=== PATIENT | female | born 1990 | race Caucasian/White ===

== ENCOUNTER 2017-08-09 02:59 | Emergency (ER) | payer MEDICAID ==
[2017-08-09 03:08] VITALS: BP 126/81
[2017-08-09] MEDS ORDERED: LIDOCAINE 1% INJ-PF (10 MG/ML) 30 ML SDV INJ ONE (03:46)
[2017-08-09] MEDS ORDERED: DIPH/PERTUSS(ACELL)/TETANUS VAC/PF 0.5 ML SYR (>=10YO) IM ONE (03:46)
--- NOTE | 2017-08-09 03:46 | ER Document Report ---
ED Wound - General Chief Complaint: Laceration Stated Complaint: FINGER INJURY Time Seen by Provider: 08/09/17 03:38 Notes: Patient is a 27-year-old female comes emergency department for chief complaint of laceration to her left middle finger. She states she was cutting foam with a knife when the knife slipped and she actually stabbed herself in the finger. She denies any other injuries. She states she is unsure if she is up-to-date on her tetanus within 5 years. TRAVEL OUTSIDE OF THE [place] IN LAST 30 DAYS: No - Related Data Allergies/Adverse Reactions: amoxicillin [Amoxicillin] Allergy (Intermediate, Verified 01/29/11 15:53) Hives Past Medical History - General Information source: Patient - Social History Smoking Status: Never Smoker Frequency of alcohol use: None Drug Abuse: None Lives with: Family Family History: Reviewed & Not Pertinent - Medical History Medical History: Negative Surgical Hx: Negative - Immunizations Hx Diphtheria, Pertussis, Tetanus Vaccination: Yes - during this Review of Systems - Review of Systems Constitutional: No symptoms reported EENT: No symptoms reported Cardiovascular: No symptoms reported Respiratory: No symptoms reported Gastrointestinal: No symptoms reported Genitourinary: No symptoms reported Female Genitourinary: No symptoms reported Musculoskeletal: See HPI Skin: See HPI Hematologic/Lymphatic: No symptoms reported Neurological/Psychological: No symptoms reported Physical Exam - Vital signs Vitals: Temp Pulse Resp BP Pulse Ox 98.5 F 110 H 18 126/81 H 96 08/09/17 03:07 08/09/17 03:07 08/09/17 03:07 08/09/17 03:07 08/09/17 03:07 Interpretation: Normal - General General appearance: Appears well, Alert - HEENT Head: Normocephalic, Atraumatic Eyes: Normal Pupils: PERRL - Respiratory Respiratory status: No respiratory distress Chest status: Nontender Breath sounds: Normal Chest palpation: Normal - Cardiovascular Rhythm: Regular Heart sounds: Normal auscultation Murmur: No - Abdominal Inspection: Normal Distension: No distension Bowel sounds: Normal Tenderness: Nontender Organomegaly: No organomegaly - Back Back: Normal, Nontender - Extremities General upper extremity: Other - Left index finger over the side laterally with a flap laceration, about 2 cm in length, irregular, partial-thickness, some bleeding. Normal range of motion of the finger at all joints, normal sensation and capillary refill, normal hand exam otherwise. General lower extremity: Normal inspection, Nontender, Normal color, Normal ROM , Normal temperature, Normal weight bearing. No: Chuck's sign - Neurological Neuro grossly intact: Yes Cognition: Normal Orientation: AAOx4 [place] Coma Scale Eye Opening: Spontaneous [place] Coma Scale Verbal: Oriented [place] Coma Scale Motor: Obeys Commands Girish Coma Scale Total: 15 Speech: Normal Motor strength normal: LUE, RUE, LLE, RLE Sensory: Normal - Psychological Associated symptoms: Normal affect, Normal mood - Skin Skin Temperature: Warm Skin Moisture: Dry Skin Color: Normal Course - Re-evaluation Re-evalutation: Cleaning, numbing, irrigating thoroughly wound was explored. No evidence of nerve, tendon, or large vessel injury. Wound repaired easily with sutures. Discussed care, follow-up, return precautions. Patient states understanding and agreement. - Vital Signs Vital signs: Temp Pulse Resp BP Pulse Ox 98.5 F 110 H 18 126/81 H 96 08/09/17 03:07 08/09/17 03:07 08/09/17 03:07 08/09/17 03:07 08/09/17 03:07 Procedures - Laceration/Wound Repair Left middle finger Wound length (cm): 2 Wound's Depth, Shape: Irregular, Flap Laceration pre-procedure: Sterile PPE donned, Sterile drapes applied, Shur- Clens applied Anesthetic type: 1% Lidocaine Volume Anesthetic (mLs): 3 Wound explored: Clean, No foreign body removed Irrigated w/ Saline (mLs): 50 Wound Repaired With: Sutures Suture Size/Type: 5:0, Nylon Number of Sutures: 4 Layer Closure?: No Post-procedure NV exam normal: Yes Complications: No Discharge - Discharge Clinical Impression: Finger laceration Qualifiers: Encounter type: initial encounter Finger: index finger Damage to nail status: without damage Foreign body presence: without foreign body Laterality: left Qualified Code(s): S61.211A - Laceration without foreign body of left index finger without damage to nail, initial encounter Condition: Stable Disposition: HOME, SELF-CARE Additional Instructions: Sutures need to come out in about 7 days. Keep area clean, clean gently with soap and water, dab dry, avoid soaking, you can apply thin film of topical antibiotic to the area. Return if you develop any concerning symptoms including redness, swelling, discolored discharge, fever, or any other concerning symptoms.
== END 2017-08-09 04:50 | disposition home or self-care (01) ==
LOC: ER 02:59
PROC: 0HQGXZZ Repair Left Hand Skin, External Approach (ICD-10-PCS; principal; 2017-08-09)
DX: S61.211A Laceration without foreign body of left index finger without damage to nail, initial encounter (principal); W26.0XXA Contact with knife, initial encounter
CPT/HCPCS: 99282; 90471; 90715; 12001; J3490

== ENCOUNTER 2019-04-16 08:48 | Emergency (ER) | payer MEDICAID ==
[2019-04-16 08:53] VITALS: BP 119/70
[2019-04-16] MEDS ORDERED: KETOROLAC TROMETHAMINE 60 MG/2 ML SDV IM ONE (09:23)
[2019-04-16] MEDS ORDERED: LIDOCAINE 5% (700 MG) TRANSDERMAL ADH..PATCH TP ONE (09:23)
[2019-04-16] MEDS ORDERED: DEXAMETHASONE 4 MG TABLET PO ONE (09:23)
--- NOTE | 2019-04-16 09:23 | ER Document Report ---
HPI - HPI Time Seen by Provider: 04/16/19 09:13 Pain Level: 5 Notes: Patient is a 29-year-old female presenting to the emergency department chief complaint of low back pain and left hip pain that radiates down left leg. Patient reports symptoms have been going on for 2 days. Patient denies any pain or burning with urination. She denies any fevers, nausea, vomiting or diarrhea. She denies any urinary retention, bowel incontinence or saddle anesthesia. She states she had a similar episode of back pain a few years ago and she ended up seeing a chiropractor. - REPRODUCTIVE Reproductive: DENIES: : - MUSCULOSKELETAL Musculoskeletal: REPORTS: Extremity pain - hip Past Medical History - General Information source: Patient - Social History Smoking Status: Never Smoker Family History: Reviewed & Not Pertinent Patient has suicidal ideation: No Patient has homicidal ideation: No - Medical History Medical History: Negative Renal/ Medical History: Denies: Hx Peritoneal Dialysis Past Surgical History: Reports: Hx Breast Surgery - Immunizations Hx Diphtheria, Pertussis, Tetanus Vaccination: Yes - during this Vertical Provider Document - CONSTITUTIONAL Notes: PHYSICAL EXAMINATION: GENERAL: Well-appearing, well-nourished and in mild distress. HEAD: Atraumatic, normocephalic. EYES: Pupils equal round extraocular movements intact, conjunctiva are normal. ENT: Nares patent NECK: Normal range of motion LUNGS: No respiratory distress Musculoskeletal: No vertebral tenderness in the cervical, thoracic or lumbar spine. No step-off or deformity on palpation. She does have lumbar paraspinous tenderness in the left lumbar region. She does have sciatic pain going into her left buttock and around to her left thigh. NEUROLOGICAL: Normal speech, normal gait. PSYCH: Normal mood, normal affect. SKIN: Warm, Dry, normal turgor, no rashes or lesions noted. - INFECTION CONTROL TRAVEL OUTSIDE OF THE [place] IN LAST 30 DAYS: No Course - Re-evaluation Re-evalutation: Presentation of a well appearing patient complaining of acute on chronic back pain. No rapid progression of symptoms, systemic symptoms including fevers, chills, weight loss, history of recent bacterial infection, bilateral symptoms, numbness, weakness, difficulty walking, urinary retention or bowel incontinence, personal history of cancer, immunosuppression, diabetes, known AAA, or history of IV drug use. Exam is without point tenderness over vertebral bodies, pulsatile abdominal mass, and patient has symmetric and intact lower extremity strength, sensation, and reflexes without clonus. 2+ symmetric medial malleolar and dorsalis pedis pulses Based on history and physical, I have a very low suspicion of a concerning etiology of pain including epidural compression syndrome, spinal infection, transverse myelitis, malignancy, abdominal aortic aneurysm, renal colic, acute lower extremity claudication, neurogenic claudication, ankylosing spondylitis, or other intra-abdominal process. Due to absence of concerning risk factors in history and physical as well as absence of rapidly progressive, severe, or bilateral symptoms, will defer imaging at this point. - Vital Signs Vital signs: Temp Pulse Resp BP Pulse Ox 97.6 F 78 20 119/70 98 04/16/19 08:52 04/16/19 08:52 04/16/19 08:52 04/16/19 08:52 04/16/19 08:52 Discharge - Discharge Clinical Impression: Back pain Qualifiers: Back pain location: low back pain Chronicity: acute Back pain laterality: left Sciatica presence: with sciatica Sciatica laterality: sciatica of left side Qualified Code(s): M54.42 - Lumbago with sciatica, left side Condition: Stable Disposition: HOME, SELF-CARE Additional Instructions: You have been seen in the Emergency Department (ED) today for back pain. Your workup and exam have not shown any acute abnormalities and you are likely suffering from muscle strain or possible problems with your discs, but there is no treatment that will fix your symptoms at this time. Please take the medications that have been prescribed as directed. Apply heat to the area as often as you are able. Continue to keep active and avoid prolonged periods of bed rest. Please follow up with your doctor as soon as possible regarding today's ED visit and your back pain. Return to the ED for worsening back pain, fever, weakness or numbness of either leg, or if you develop either (1) an inability to urinate or have bowel movements, or (2) loss of your ability to control your bathroom functions (if you start having "accidents"), or if you develop other new symp toms that concern you.concern you. Prescriptions: Cyclobenzaprine HCl [Flexeril 10 mg Tablet] 10 mg PO TIDP PRN #15 tab PRN Reason: Hydrocodone Bit/Acetaminophen [Hydrocodon-Acetaminophen 5-325] 1 each PO Q4H #12 tablet Lidocaine [Lidoderm 5% (700 mg) Transdermal Patch] 1 patch TP DAILY #30 adh..patch
== END 2019-04-16 09:44 | disposition home or self-care (01) ==
LOC: ER 08:48
DX: M54.42 Lumbago with sciatica, left side (principal)
CPT/HCPCS: J3490 ×2; J1885; 96374; 99283

== ENCOUNTER 2019-06-05 08:36 | Emergency (ER) | payer MEDICAID ==
[2019-06-05] MEDS ORDERED: CIPROFLOXACIN HCL/DEXAMETH OTIC DROP 7.5 ML AS ONE (08:57)
--- NOTE | 2019-06-05 08:58 | ER Document Report ---
HPI - HPI Patient complains to provider of: Left ear pain Time Seen by Provider: 06/05/19 08:42 Pain Level: 5 Notes: 29-year-old female with no past medical history presents with left ear pain for the past 2 weeks. She states she was driving back from [place] yesterday and the pain got worse. States it is starting to radiate down to her jaw. Patient states she felt "hot" few days ago however did not take her temperature. Patient states she did have a dry cough for the past couple days as well. Denies nausea, vomiting, diarrhea, constipation, chest pain, dyspnea, abdominal pain. Pt states she had frequent ear infections as a child, including swimmers ear. Pt had perforated TM one time as a child. - EENT EENT: REPORTS: Ear Pain - REPRODUCTIVE Reproductive: DENIES: : Past Medical History - Social History Smoking Status: Unknown if Ever Smoked Chew tobacco use (# tins/day): No Frequency of alcohol use: Occasional Drug Abuse: None Family History: Reviewed & Not Pertinent Patient has suicidal ideation: No Patient has homicidal ideation: No Renal/ Medical History: Denies: Hx Peritoneal Dialysis Past Surgical History: Reports: Hx Breast Surgery - Immunizations Hx Diphtheria, Pertussis, Tetanus Vaccination: Yes - during this Vertical Provider Document - CONSTITUTIONAL Notes: GENERAL: Well-appearing, well-nourished and in no acute distress. HEAD: Atraumatic, normocephalic. EYES: Extraocular movements intact, sclera anicteric, conjunctiva are normal. ENT: Left EAC swollen with mild erythema, left TM pearly/reeder, right EAC normal, nares patent, no mastoid tenderness bilaterally, oropharynx clear without exudates. Moist mucous membranes. No gum swelling. No caries. Uvula midline. No muffled voice. NECK: Normal range of motion, supple without lymphadenopathy or JVD. LUNGS: Breath sounds clear to auscultation bilaterally and equal. No wheezes rales or rhonchi. HEART: Regular rate and rhythm without murmurs, rubs or gallops. ABDOMEN: Soft, nontender. No guarding, no rebound. No masses appreciated. EXTREMITIES: Normal range of motion, no pitting or edema. No clubbing or cyanosis. NEUROLOGICAL: Cranial nerves II through XII grossly intact. Normal speech, normal gait. PSYCH: Normal mood, normal affect. SKIN: Warm, Dry, normal turgor, no rashes or lesions noted. - INFECTION CONTROL TRAVEL OUTSIDE OF THE [place] IN LAST 30 DAYS: No Course - Re-evaluation Re-evalutation: 06/05/19 29 y/o well appearing, nontoxic female presents with left ear pain for 2 weeks, worse yesterday. Exam consistent with otitis externa without mastoid tenderness to suggest mastoiditis. Afebrile. Ciprodex given in ER with prescription for same. Referral given to establish PCP for follow up. Return precautions discussed/given. All questions/concerns addressed prior to discharge. - Vital Signs Vital signs: Temp Pulse Resp BP Pulse Ox 97.8 F 109 H 18 117/72 96 06/05/19 08:39 06/05/19 08:39 06/05/19 08:39 06/05/19 08:39 06/05/19 08:39 Discharge - Discharge Clinical Impression: Left otitis externa Qualifiers: Otitis externa type: swimmer's ear Chronicity: acute Qualified Code(s): H60.332 - Swimmer's ear, left ear Condition: Stable Disposition: HOME, SELF-CARE Instructions: Use of Ear Drops ([facility]), Otitis Externa ([facility]), Acetaminophen Additional Instructions: Maintain adequate fluid intake Take meds as directed tylenol/ibuprofen as needed Avoid Q-tips in the ears over the counter cold medication as needed for symptoms F/u: with PCP listed in 2-3 days for a recheck Consider consult with ENT Return to the ED with any fever, dizziness, tinnitus, headaches, worsening pain, chest pain, palpitations, syncope, neck pain/stiffness, shortness of breath, wheezing, drooling, trouble swallowing/breathing, abdominal pain, n/v/d, rash, or worsening/concerning symptoms otherwise. Prescriptions: Ciprofloxacin HCl/Dexameth [Ciprodex Otic Suspension 7.5 ml Bottle] 3 drop OT BID #1 bottle Referrals: SHIRA BURNETTE MD [ACTIVE STAFF] - Follow up as needed
[2019-06-05 09:17] VITALS: BP 107/73
== END 2019-06-05 09:17 | disposition home or self-care (01) ==
LOC: ER 08:36
DX: H60.332 Swimmer's ear, left ear (principal); H92.02 Otalgia, left ear; R68.84 Jaw pain
CPT/HCPCS: 99282; J3490

== ENCOUNTER 2019-07-27 04:09 | Emergency (ER) | payer MEDICAID ==
[2019-07-27] MEDS ORDERED: ONDANSETRON 4 MG TAB.RAPDIS PO ONE (04:46)
--- NOTE | 2019-07-27 04:52 | ER Document Report ---
ED Medical Screen (RME) - General Chief Complaint: OB Problem (<20wks) Stated Complaint: VAGINAL BLEEDING Time Seen by Provider: 07/27/19 04:45 Notes: 29-year-old female chief complaint of vaginal bleeding, she states she believes she is about 7 weeks by last menstrual period. She also reports frequent morning sickness and vomiting, currently nauseated, same as previous pregnancies. Reports lower abdominal cramping. TRAVEL OUTSIDE OF THE [place] IN LAST 30 DAYS: No - Related Data Allergies/Adverse Reactions: amoxicillin [Amoxicillin] Allergy (Intermediate, Verified 06/05/19 08:43) Hives Home Medications: vitamin. allergy med Past Medical History Renal/ Medical History: Denies: Hx Peritoneal Dialysis Past Surgical History: Reports: Hx Breast Surgery - Immunizations Hx Diphtheria, Pertussis, Tetanus Vaccination: Yes - during this Physical Exam - Vital signs Vitals: Temp Pulse Resp BP Pulse Ox 98.3 F 113 H 20 112/68 96 07/27/19 04:19 07/27/19 04:19 07/27/19 04:19 07/27/19 04:19 07/27/19 04:19 - General General appearance: Other - Patient nauseated, holding an emesis bag - Cardiovascular Rhythm: Regular, Tachycardia - Borderline Heart sounds: Normal auscultation, S1 appreciated, S2 appreciated Course - Re-evaluation Re-evalutation: I have greeted and performed a rapid initial assessment of this patient. A comprehensive ED assessment and evaluation of the patient, analysis of test results and completion of the medical decision making process will be conducted by additional ED providers. - Vital Signs Vital signs: Temp Pulse Resp BP Pulse Ox 98.3 F 113 H 20 112/68 96 07/27/19 04:19 07/27/19 04:19 07/27/19 04:19 07/27/19 04:19 07/27/19 04:19
[2019-07-27 05:48] LABS: ABSOLUTE LYMPHOCYTES (AUTO) 0.7 10^3/uL (0.5-4.7); ABSOLUTE MONOCYTES (AUTO) 0.4 10^3/uL (0.1-1.4); ABSOLUTE NEUT (AUTO) 7.1 10^3/uL (1.7-8.2); BASOPHILS % (AUTO) 0.2 % (0-2); EOSINOPHILS % (AUTO) 0.5 % (0-6); HEMATOCRIT 38.1 % (36.0-47.0); HEMOGLOBIN 12.9 g/dL (12.0-15.5); LYMPHOCYTES % (AUTO) 8.2 % (13-45); MEAN CORPUSCULAR HEMOGLOBIN 30.8 pg (27.0-33.4); MEAN CORPUSCULAR HGB CONC 33.9 g/dL (32.0-36.0); MEAN CORPUSCULAR VOLUME 91 fl (80-97); PLATELET COUNT 244 10^3/uL (150-450); RED BLOOD COUNT 4.18 10^6/uL (3.72-5.28); RED CELL DISTRIBUTION WIDTH 12.8 % (11.5-14.0); SEGMENTED NEUTROPHILS % (AUTO) 86.1 % (42-78); TOTAL CELLS COUNTED % (AUTO) 100 %; WHITE BLOOD COUNT 8.3 10^3/uL (4.0-10.5)
[2019-07-27 06:10] LABS: ALBUMIN 4.4 g/dL (3.5-5.0); ALKALINE PHOSPHATASE 55 U/L (38-126); ANION GAP 12 (5-19); ASPARTATE AMINO TRANSFERASE 27 U/L (14-36); BILIRUBIN,DIRECT 0.2 mg/dL (0.0-0.4); BILIRUBIN,TOTAL 0.5 mg/dL (0.2-1.3); BLOOD UREA NITROGEN 12 mg/dL (7-20); CALCIUM 9.3 mg/dL (8.4-10.2); CARBON DIOXIDE 23 mmol/L (22-30); CHLORIDE 103 mmol/L (98-107); GLUCOSE 103 mg/dL (75-110); POTASSIUM 4.2 mmol/L (3.6-5.0); TOTAL PROTEIN 7.5 g/dL (6.3-8.2)
[2019-07-27 07:25] LABS: APPEARANCE,URINE SLIGHTLY-CLOUDY; BILIRUBIN,URINE NEGATIVE (NEGATIVE); COLOR,URINE YELLOW; GLUCOSE, URINE NEGATIVE (NEGATIVE); KETONES,URINE NEGATIVE (NEGATIVE); LEUKOCYTE ESTERASE,URINE NEGATIVE (NEGATIVE); NITRITE,URINE NEGATIVE (NEGATIVE); PROTEIN,URINE NEGATIVE (NEGATIVE); URINE SPECIFIC GRAVITY 1.016; UROBILINOGEN,URINE NEGATIVE mg/dL (<2.0)
--- NOTE | 2019-07-27 07:38 | RADIOLOGY REPORT (SQ) ---
CLINICAL HISTORY: +HCG, bleeding, pain COMPARISON: None. TECHNIQUE: US TRANSVAGINAL on 07/27/2019 5:43 AM [employer] FINDINGS: The uterus measures 11.3 cm. Intrauterine gestational sac contains a pole measuring 1.1 cm) weeks one day. heart rate is 180 bpm. There is an adjacent almost 1 cm subchorionic hemorrhage. Both ovaries are unremarkable with patent flow. IMPRESSION: Single live intrauterine gestation as described.
--- NOTE | 2019-07-27 10:42 | ER Document Report ---
ED General - General Chief Complaint: OB Problem (<20wks) Stated Complaint: VAGINAL BLEEDING Time Seen by Provider: 07/27/19 04:45 Notes: 29-year-old G3, P2 7-week female presents with bleeding that started yesterday and lower abdominal cramping. Patient states she has had nausea. Patient states based off her LMP she is approximately 7 weeks . Patient's [facility] is [facility]. Patient currently states she has no bleeding at this time and patient has been able to eat a few crackers without vomiting. Patient denies any fever, chest pain, shortness of breath. TRAVEL OUTSIDE OF THE [place] IN LAST 30 DAYS: No - Related Data Allergies/Adverse Reactions: amoxicillin [Amoxicillin] Allergy (Intermediate, Verified 06/05/19 08:43) Hives Home Medications: vitamin. allergy med Past Medical History - General Last Menstrual Period: 06/04/2019 - Social History Smoking Status: Never Smoker Family History: Reviewed & Not Pertinent Patient has suicidal ideation: No Patient has homicidal ideation: No - Past Medical History Cardiac Medical History: Denies: Hx Atrial Fibrillation, Hx Congestive Heart Failure, Hx Heart Attack, Hx Hypercholesterolemia, Hx Hypertension Pulmonary Medical History: Reports: Hx Asthma Denies: Hx Bronchitis, Hx COPD, Hx Pneumonia, Hx Tuberculosis Neurological Medical History: Reports: Hx Migraine. Denies: Hx Seizures Endocrine Medical History: Denies: Hx Diabetes Mellitus Type 1, Hx Diabetes Mellitus Type 2 Renal/ Medical History: Denies: Hx End Stage Renal Disease, Hx Kidney Stones, Hx Peritoneal Dialysis GI Medical History: Reports: Hx Gastroesophageal Reflux Disease - only when . Denies: Hx Hiatal Hernia, Hx Ulcer Musculoskeletal Medical History: Denies Hx Arthritis Psychiatric Medical History: Reports: Hx Attention Deficit Hyperactivity Disorder Denies: Hx Bipolar Disorder, Hx Depression, Hx Schizophrenia Past Surgical History: Reports: Hx Breast Surgery - 2005 - Immunizations Hx Diphtheria, Pertussis, Tetanus Vaccination: Yes - during this Review of Systems - Review of Systems Notes: Constitutional: Negative for fever. HENT: Negative for sore throat. Eyes: Negative for visual changes. Cardiovascular: Negative for chest pain. Respiratory: Negative for shortness of breath. Gastrointestinal: Negative for abdominal pain, vomiting or diarrhea. Genitourinary: Positive for vaginal bleeding. Negative for dysuria. Musculoskeletal: Negative for back pain. Skin: Negative for rash. Neurological: Negative for headaches, weakness or numbness. 10 point ROS negative except as marked above and in HPI. Physical Exam - Vital signs Vitals: Temp Pulse Resp BP Pulse Ox 98.3 F 113 H 20 112/68 96 07/27/19 04:19 07/27/19 04:19 07/27/19 04:19 07/27/19 04:19 07/27/19 04:19 - Notes Notes: GENERAL: Well-appearing, well-nourished and in no acute distress. HEAD: Atraumatic, normocephalic. EYES: Extraocular movements intact, sclera anicteric, conjunctiva are normal. NECK: Normal range of motion, supple without lymphadenopathy or JVD. ABDOMEN: Soft, nontender. No guarding, no rebound. No masses appreciated. PELVIC: Declined. EXTREMITIES: Normal range of motion, no pitting or edema. No clubbing or cy anosis. NEUROLOGICAL: Cranial nerves II through XII grossly intact. Normal speech, normal gait. PSYCH: Normal mood, normal affect. SKIN: Warm, Dry, normal turgor, no rashes or lesions noted. Course - Re-evaluation Re-evalutation: 07/27/19 nontoxic, well-appearing G3, P2 7-week female presents with bleeding that has now resolved. Abdomen soft nontender. PE is otherwise unremarkable. Ultrasound shows an IUP with a heart rate of 180 with an adjacent 1 cm subchorionic hemorrhage. CBC is within normal limits with a hemoglobin of 12.9. Patient's beta-hCG is 67,625. Patient is A+ so does not require RhoGam. Discussed all results with patient. UA shows moderate amount of blood with 6 WBCs and 5 squamous epithelium. Discussed all results with patient. Return precautions given. Patient given referral to [facility]. - Vital Signs Vital signs: Temp Pulse Resp BP Pulse Ox 98.3 F 101 H 18 133/69 H 98 07/27/19 09:27 07/27/19 09:27 07/27/19 09:27 07/27/19 09:27 07/27/19 09:15 - Laboratory Result Diagrams: 07/27/19 05:08 07/27/19 05:08 Laboratory results interpreted by me: 07/27/19 07/27/19 07/27/19 05:08 05:08 07:10 Lymph % (Auto) 8.2 L Seg Neutrophils % 86.1 H Beta HCG, Quant 90942.00 H Urine Blood MODERATE H Discharge - Discharge Clinical Impression: Vaginal bleeding before 22 weeks gestation, Threatened miscarriage in early Condition: Stable Disposition: HOME, SELF-CARE Instructions: Bleeding During Early ([facility]), Threatened Miscarriage ([facility]) Additional Instructions: Your ultrasound shows a inside your uterus with a heart rate of 180. Your lab work was otherwise reassuring. Your beta-hCG ( hormone) was 67,625 today. Please follow-up with your [facility] in 3 to 5 days. Please take Diclegis as prescribed for nausea/vomiting. Please follow-up with your [facility] in 3 to 5 days. Return immediately to ER if you start having any worsening symptoms, including worsening bleeding, vomiting not controlled by medication, fever, abdominal pain, pelvic pain, burning while urinating, or any other symptoms that are concerning to you. Prescriptions: Doxylamine Succinate/Vit B6 [Serenity Nicholas 10-10 mg Tablet] 1 each PO QPM #20 tablet. Referrals: [facility] [Provider Group] - Follow up in 3-5 days
[2019-07-27 11:18] VITALS: BP 108/54
== END 2019-07-27 11:20 | disposition home or self-care (01) ==
LOC: ER 04:09
DX: O20.0 Threatened abortion (principal); O26.891 Other specified pregnancy related conditions, first trimester; R10.30 Lower abdominal pain, unspecified; O99.511 Diseases of the respiratory system complicating pregnancy, first trimester; J45.909 Unspecified asthma, uncomplicated; Z3A.01 Less than 8 weeks gestation of pregnancy; Z79.899 Other long term (current) drug therapy; Z88.0 Allergy status to penicillin
CPT/HCPCS: 99284; 86900; 86901; 36415; 84702; 85025; 80053; 81001; 76817; 93976; S0119

== ENCOUNTER 2019-08-01 19:52 | Emergency (ER) | payer MEDICAID ==
--- NOTE | 2019-08-01 20:29 | ER Document Report ---
ED Medical Screen (RME) - General Chief Complaint: Vaginal Bleeding Stated Complaint: VAGINAL BLEEDING Time Seen by Provider: 08/01/19 20:24 Notes: 29-year-old G3, P2 8-week female presents the emergency department for vaginal bleeding. She was seen here 2 days ago and diagnosed with a 1 cm subchorionic hemorrhage. Patient states that the bleeding has subsided, she started spotting this morning, and then started having heavy bleeding prior to arrival and blood through her clothes. She denies any abdominal cramping, denies fevers, denies any other symptoms. Exam: Well-appearing in no acute distress, regular cardiac rate and rhythm, abdominal exam deferred in triage. I have greeted and performed a rapid initial assessment of this patient. A comprehensive ED assessment and evaluation of the patient, analysis of test resu lts and completion of medical decision making process will be conducted by an additional ED providers. TRAVEL OUTSIDE OF THE [place] IN LAST 30 DAYS: No - Related Data Allergies/Adverse Reactions: amoxicillin [Amoxicillin] Allergy (Intermediate, Verified 06/05/19 08:43) Hives Past Medical History - Past Medical History Cardiac Medical History: Denies: Hx Atrial Fibrillation, Hx Congestive Heart Failure, Hx Heart Attack, Hx Hypercholesterolemia, Hx Hypertension Pulmonary Medical History: Reports: Hx Asthma Denies: Hx Bronchitis, Hx COPD, Hx Pneumonia, Hx Tuberculosis Neurological Medical History: Reports: Hx Migraine. Denies: Hx Seizures Endocrine Medical History: Denies: Hx Diabetes Mellitus Type 1, Hx Diabetes Mellitus Type 2 Renal/ Medical History: Denies: Hx End Stage Renal Disease, Hx Kidney Stones, Hx Peritoneal Dialysis GI Medical History: Reports: Hx Gastroesophageal Reflux Disease - only when . Denies: Hx Hiatal Hernia, Hx Ulcer Musculoskeltal Medical History: Denies Hx Arthritis Psychiatric Medical History: Reports: Hx Attention Deficit Hyperactivity Disorder Denies: Hx Bipolar Disorder, Hx Depression, Hx Schizophrenia Past Surgical History: Reports: Hx Breast Surgery - 2005 - Immunizations Hx Diphtheria, Pertussis, Tetanus Vaccination: Yes - during this Physical Exam - Vital signs Vitals: Temp Pulse Resp BP Pulse Ox 98.7 F 92 20 127/73 H 96 08/01/19 20:11 08/01/19 20:11 08/01/19 20:11 08/01/19 20:11 08/01/19 20:11 Course - Vital Signs Vital signs: Temp Pulse Resp BP Pulse Ox 98.7 F 92 20 127/73 H 96 08/01/19 20:11 08/01/19 20:11 08/01/19 20:11 08/01/19 20:11 08/01/19 20:11
[2019-08-01 21:01] LABS: ABSOLUTE EOSINOPHILS # (AUTO) 0.1 10^3/uL (0.0-0.6); ABSOLUTE LYMPHOCYTES (AUTO) 2.6 10^3/uL (0.5-4.7); ABSOLUTE MONOCYTES (AUTO) 0.7 10^3/uL (0.1-1.4); ABSOLUTE NEUT (AUTO) 4.8 10^3/uL (1.7-8.2); BASOPHILS % (AUTO) 0.6 % (0-2); EOSINOPHILS % (AUTO) 1.1 % (0-6); HEMATOCRIT 36.5 % (36.0-47.0); HEMOGLOBIN 12.5 g/dL (12.0-15.5); LYMPHOCYTES % (AUTO) 31.6 % (13-45); MEAN CORPUSCULAR HEMOGLOBIN 30.8 pg (27.0-33.4); MEAN CORPUSCULAR HGB CONC 34.3 g/dL (32.0-36.0); MEAN CORPUSCULAR VOLUME 90 fl (80-97); MONOCYTES % (AUTO) 8.3 % (3-13); PLATELET COUNT 287 10^3/uL (150-450); RED BLOOD COUNT 4.07 10^6/uL (3.72-5.28); RED CELL DISTRIBUTION WIDTH 13.1 % (11.5-14.0); TOTAL CELLS COUNTED % (AUTO) 100 %; WHITE BLOOD COUNT 8.2 10^3/uL (4.0-10.5)
[2019-08-01 21:03] LABS: SEGMENTED NEUTROPHILS % (AUTO) 58.4 % (42-78)
[2019-08-01 21:53] LABS: ALBUMIN 4.1 g/dL (3.5-5.0); ALKALINE PHOSPHATASE 50 U/L (38-126); ANION GAP 13 (5-19); ASPARTATE AMINO TRANSFERASE 25 U/L (14-36); BILIRUBIN,DIRECT 0.3 mg/dL (0.0-0.4); BILIRUBIN,TOTAL 0.3 mg/dL (0.2-1.3); BLOOD UREA NITROGEN 14 mg/dL (7-20); CARBON DIOXIDE 25 mmol/L (22-30); CHLORIDE 100 mmol/L (98-107); GLUCOSE 92 mg/dL (75-110); POTASSIUM 4.1 mmol/L (3.6-5.0); TOTAL PROTEIN 7.4 g/dL (6.3-8.2)
[2019-08-01 22:22] LABS: APPEARANCE,URINE SLIGHTLY-CLOUDY; BILIRUBIN,URINE NEGATIVE (NEGATIVE); COLOR,URINE YELLOW; GLUCOSE, URINE NEGATIVE (NEGATIVE); KETONES,URINE NEGATIVE (NEGATIVE); LEUKOCYTE ESTERASE,URINE NEGATIVE (NEGATIVE); NITRITE,URINE NEGATIVE (NEGATIVE); PROTEIN,URINE NEGATIVE (NEGATIVE); URINE SPECIFIC GRAVITY 1.021; UROBILINOGEN,URINE NEGATIVE mg/dL (<2.0)
--- NOTE | 2019-08-01 22:35 | RADIOLOGY REPORT (SQ) ---
US PELVIS EXAM DATE: 08/01/2019 8:27 PM [employer] HISTORY: Vaginal bleeding. Pelvic pain. COMPARISON: 07/27/2019 TECHNIQUE: Grayscale, color Doppler, and spectral Doppler ultrasound images of the pelvis were obtained. FINDINGS: There is an intrauterine gestational sac with a yolk sac and pole visualized. The crown-rump length measures 1.63 cm corresponding to 8 weeks 0 days of . The heart rate is 158 bpm. There is an adjacent 7.6 x 3.0 x 4.2 cm subchorionic hematoma. The cervix measures 3.7 cm. The right ovary is not seen. The left ovary is normal in size with normal color Doppler blood flow. No pelvic free fluid. IMPRESSION: 1. Single live IUP with estimated gestational age 8 weeks 0 days. 2. Large adjacent subchorionic hemorrhage, new from prior study; attention on follow-up imaging is suggested.
--- NOTE | 2019-08-01 22:41 | ER Document Report ---
ED General - General Chief Complaint: OB Problem (<20wks) Stated Complaint: VAGINAL BLEEDING Time Seen by Provider: 08/01/19 20:24 TRAVEL OUTSIDE OF THE [place] IN LAST 30 DAYS: No - HPI Notes: Patient is a G3, P2 female at approximately 8 weeks gestation who presents to the emergency department for evaluation of vaginal bleeding. She was actually seen here on the , diagnosed with a subchorionic hemorrhage. She states that her bleeding at that point had resolved prior to leaving the hospital. Tod ay she started with some bleeding, that became more heavy. She states she bled through 2 pads. She had some waxing and waning, but now has mild vaginal bleeding right now. She denies any pain. - Related Data Allergies/Adverse Reactions: amoxicillin [Amoxicillin] Allergy (Intermediate, Verified 06/05/19 08:43) Hives Home Medications: vitamins. allergy med Past Medical History - General Information source: Patient - Social History Smoking Status: Never Smoker Drug Abuse: None Family History: Reviewed & Not Pertinent Patient has suicidal ideation: No Patient has homicidal ideation: No - Past Medical History Cardiac Medical History: Denies: Hx Atrial Fibrillation, Hx Congestive Heart Failure, Hx Heart Attack, Hx Hypercholesterolemia, Hx Hypertension Pulmonary Medical History: Reports: Hx Asthma Denies: Hx Bronchitis, Hx COPD, Hx Pneumonia, Hx Tuberculosis Neurological Medical History: Reports: Hx Migraine. Denies: Hx Seizures Endocrine Medical History: Denies: Hx Diabetes Mellitus Type 1, Hx Diabetes Mellitus Type 2 Renal/ Medical History: Denies: Hx End Stage Renal Disease, Hx Kidney Stones, Hx Peritoneal Dialysis GI Medical History: Reports: Hx Gastroesophageal Reflux Disease - only when . Denies: Hx Hiatal Hernia, Hx Ulcer Musculoskeletal Medical History: Denies Hx Arthritis Psychiatric Medical History: Reports: Hx Attention Deficit Hyperactivity Disorder Denies: Hx Bipolar Disorder, Hx Depression, Hx Schizophrenia Past Surgical History: Reports: Hx Breast Surgery - 2005 - Immunizations Hx Diphtheria, Pertussis, Tetanus Vaccination: Yes - during this Review of Systems - Review of Systems Constitutional: No symptoms reported EENT: No symptoms reported Cardiovascular: No symptoms reported Respiratory: No symptoms reported Gastrointestinal: No symptoms reported Genitourinary: No symptoms reported Female Genitourinary: See HPI Musculoskeletal: No symptoms reported Skin: No symptoms reported Neurological/Psychological: No symptoms reported Physical Exam - Vital signs Vitals: Temp Pulse Resp BP Pulse Ox 98.7 F 92 20 127/73 H 96 08/01/19 20:11 08/01/19 20:11 08/01/19 20:11 08/01/19 20:11 08/01/19 20:11 - Notes Notes: Vital signs reviewed, please refer to chart. Head is normocephalic, atraumatic. Pupils equal round, reactive to light. Neck is supple without meningismus. Heart is regular rate and rhythm. Lungs are clear to auscultation bilaterally. Abdomen is soft, nontender, normoactive bowel sounds throughout. Extremities without cyanosis, clubbing. Posterior calves are nontender. Peripheral pulses are equal. Skin is warm and dry. Patient is awake, alert, neurological exam is nonfocal. Course - Re-evaluation Re-evalutation: 08/01/19 22:40 Patient presents emergency department for evaluation. She had initial orders placed through triage. I did review the ultrasound, which revealed an 8-week intrauterine gestation, and a large complex mass, likely an increase in her subchorionic hemorrhage. Awaiting radiology read, blood work. At this point the patient is stable. She is given assurance that there is cardiac activity seen on the scan, will update patient as further information becomes available. 08/01/19 23:43 Report from radiology reveals large subchorionic hemorrhage as suspected. I did review her blood bank history, she is Rh+. Patient is stable, not actively bleeding at this time. She is to follow closely with OB, serial ultrasounds are recommended. She is to return to the ED with worsening or new concerning symptoms of any sort. - Vital Signs Vital signs: Temp Pulse Resp BP Pulse Ox 98.7 F 92 20 127/73 H 96 08/01/19 20:11 08/01/19 20:11 08/01/19 20:11 08/01/19 20:11 08/01/19 20:11 - Laboratory Result Diagrams: 08/01/19 20:40 08/01/19 20:40 Laboratory results interpreted by me: 08/01/19 08/01/19 20:40 20:40 Beta HCG, Quant [id number] H Urine Blood LARGE H Discharge - Discharge Clinical Impression: Subchorionic hemorrhage in first trimester Qualifiers: Fetus number: single or unspecified fetus Qualified Code(s): O41.8X10 - Other specified disorders of amniotic fluid and membranes, first trimester, not applicable or unspecified; O46.8X1 - Other antepartum hemorrhage, first trimester Condition: Stable Disposition: HOME, SELF-CARE Instructions: Bleeding During Early ([facility]) Additional Instructions: This subchorionic hemorrhage seen today was significantly larger. Pelvic rest as discussed. You need to follow-up with OB, ultrasounds are recommended to follow this. Return to the emergency department with worsening or new concerning symptoms of any sort.
[2019-08-02 00:12] VITALS: BP 114/69
== END 2019-08-01 23:50 | disposition home or self-care (01) ==
LOC: ER 19:52
DX: O41.8X10 Other specified disorders of amniotic fluid and membranes, first trimester, not applicable or unspecified (principal); Z3A.08 8 weeks gestation of pregnancy; Z88.0 Allergy status to penicillin
CPT/HCPCS: 36415; 76817; 80053; 81001; 84702; 85025; 93976; 99284

== ENCOUNTER 2019-08-26 20:45 | Emergency (ER) | payer MEDICAID ==
[2019-08-26 20:53] VITALS: BP 130/70
--- NOTE | 2019-08-26 22:07 | ER Document Report ---
ED Medical Screen (RME) - General Chief Complaint: Vaginal Bleeding Stated Complaint: VAGINAL BLEEDING/PAIN Time Seen by Provider: 08/26/19 22:01 Mode of Arrival: Wheelchair Information source: Patient Notes: 29-year-old female G3, P2 approximately 12 weeks presents emergency department with complaints of vaginal bleeding blood clots. She also complains of abdominal cramping and nausea. She declines antinausea medicine and Tylenol at this time. She reports the bleeding started approximately 3 ago. Patient looks uncomfortable. I have greeted and performed a rapid initial assessment of this patient. A comprehensive ED assessment and evaluation of the patient, analysis of test results and completion of the medical decision making process will be conducted by additional ED providers. TRAVEL OUTSIDE OF THE [place] IN LAST 30 DAYS: No - Related Data Allergies/Adverse Reactions: amoxicillin [Amoxicillin] Allergy (Intermediate, Verified 06/05/19 08:43) Hives Past Medical History - Past Medical History Cardiac Medical History: Denies: Hx Atrial Fibrillation, Hx Congestive Heart Failure, Hx Heart Attack, Hx Hypercholesterolemia, Hx Hypertension Pulmonary Medical History: Reports: Hx Asthma Denies: Hx Bronchitis, Hx COPD, Hx Pneumonia, Hx Tuberculosis Neurological Medical History: Reports: Hx Migraine. Denies: Hx Seizures Endocrine Medical History: Denies: Hx Diabetes Mellitus Type 1, Hx Diabetes Mellitus Type 2 Renal/ Medical History: Denies: Hx End Stage Renal Disease, Hx Kidney Stones, Hx Peritoneal Dialysis GI Medical History: Reports: Hx Gastroesophageal Reflux Disease - only when . Denies: Hx Hiatal Hernia, Hx Ulcer Musculoskeltal Medical History: Denies Hx Arthritis Psychiatric Medical History: Reports: Hx Attention Deficit Hyperactivity Disorder Denies: Hx Bipolar Disorder, Hx Depression, Hx Schizophrenia Past Surgical History: Reports: Hx Breast Surgery - 2005 - Immunizations Hx Diphtheria, Pertussis, Tetanus Vaccination: Yes - during this Physical Exam - Vital signs Vitals: Temp Pulse Resp BP Pulse Ox 98.0 F 100 20 130/70 H 100 08/26/19 20:51 08/26/19 20:51 08/26/19 20:51 08/26/19 20:51 08/26/19 20:51 Course - Vital Signs Vital signs: Temp Pulse Resp BP Pulse Ox 98.0 F 100 20 130/70 H 100 08/26/19 20:51 08/26/19 20:51 08/26/19 20:51 08/26/19 20:51 08/26/19 20:51
[2019-08-26 22:40] LABS: ABSOLUTE EOSINOPHILS # (AUTO) 0.1 10^3/uL (0.0-0.6); ABSOLUTE LYMPHOCYTES (AUTO) 2.5 10^3/uL (0.5-4.7); ABSOLUTE MONOCYTES (AUTO) 0.8 10^3/uL (0.1-1.4); ABSOLUTE NEUT (AUTO) 7.9 10^3/uL (1.7-8.2); BASOPHILS % (AUTO) 0.2 % (0-2); HEMATOCRIT 34.3 % (36.0-47.0); HEMOGLOBIN 11.8 g/dL (12.0-15.5); LYMPHOCYTES % (AUTO) 22.3 % (13-45); MEAN CORPUSCULAR HGB CONC 34.5 g/dL (32.0-36.0); MEAN CORPUSCULAR VOLUME 90 fl (80-97); PLATELET COUNT 285 10^3/uL (150-450); RED BLOOD COUNT 3.81 10^6/uL (3.72-5.28); RED CELL DISTRIBUTION WIDTH 13.2 % (11.5-14.0); SEGMENTED NEUTROPHILS % (AUTO) 69.5 % (42-78); TOTAL CELLS COUNTED % (AUTO) 100 %; WHITE BLOOD COUNT 11.4 10^3/uL (4.0-10.5)
[2019-08-26 22:52] LABS: ALBUMIN 4.3 g/dL (3.5-5.0); ALKALINE PHOSPHATASE 66 U/L (38-126); ANION GAP 9 (5-19); ASPARTATE AMINO TRANSFERASE 21 U/L (14-36); BILIRUBIN,TOTAL 0.2 mg/dL (0.2-1.3); BLOOD UREA NITROGEN 8 mg/dL (7-20); CALCIUM 9.8 mg/dL (8.4-10.2); CARBON DIOXIDE 24 mmol/L (22-30); CHLORIDE 103 mmol/L (98-107); GLUCOSE 96 mg/dL (75-110); TOTAL PROTEIN 7.4 g/dL (6.3-8.2)
--- NOTE | 2019-08-26 23:18 | RADIOLOGY REPORT (SQ) ---
EXAM: OB ultrasound CLINICAL INDICATION: Passing clots. COMPARISON: OB ultrasound August 01, 2019 TECHNIQUE: First trimester OB ultrasound was performed. FINDINGS: Uterus: The uterus measures 11.4 x 7.0 x 8.8 cm. No intrauterine is clearly seen. In the right cornu of the fundus there is a discrete round hyperechoic area which measures 3.8 x 3.7 x 3.4 cm. This was not present on the previous examination and may represent a hematoma or clot. The endometrium is heterogeneous and measures 2.2 cm in thickness. There appears to be fluid and hypoechoic material within the cervix. Ovaries and adnexa: The right ovary measures 3.0 x 2.3 x 2.3 cm and is morphologically normal. The left ovary is not seen. No free fluid. IMPRESSION: 1. No intrauterine is identified. Findings are consistent with spontaneous . 2. Abnormal appearance of the endometrium suggesting retained products of conception. 3. Discrete round hyperechoic area now seen in the right cornu of the uterus which may represent focal hematoma. 4. No free fluid.
[2019-08-26 23:49] LABS: APPEARANCE,URINE CLEAR; BILIRUBIN,URINE NEGATIVE (NEGATIVE); COLOR,URINE YELLOW; GLUCOSE, URINE NEGATIVE (NEGATIVE); KETONES,URINE NEGATIVE (NEGATIVE); LEUKOCYTE ESTERASE,URINE NEGATIVE (NEGATIVE); NITRITE,URINE NEGATIVE (NEGATIVE); PROTEIN,URINE 30 mg/dL (NEGATIVE); URINE SPECIFIC GRAVITY 1.005; UROBILINOGEN,URINE NEGATIVE mg/dL (<2.0)
--- NOTE | 2019-08-27 00:29 | ER Document Report ---
ED General - General Chief Complaint: Vag Bleeding, +preg <12wks Stated Complaint: VAGINAL BLEEDING/PAIN Time Seen by Provider: 08/26/19 22:01 Mode of Arrival: Wheelchair TRAVEL OUTSIDE OF THE [place] IN LAST 30 DAYS: No - HPI Notes: Patient is a 29-year-old female, G3, P2 at approximately 12 weeks gestation, who presents to the emergency department for evaluation of vaginal bleeding. She states that she has been following with women's health here, she was recently diagnosed with a subchorionic hemorrhage. She states that she had some sudden onset bleeding about a half an hour prior to her arrival. She states she did have some clots in it. She states that the bleeding is slowed significantly, she has not even felt a pad. She has some cramping pain that is improved as well. - Related Data Allergies/Adverse Reactions: amoxicillin [Amoxicillin] Allergy (Intermediate, Verified 06/05/19 08:43) Hives Home Medications: vitamins Past Medical History - General Information source: Patient - Social History Smoking Status: Never Smoker Family History: Reviewed & Not Pertinent Patient has suicidal ideation: No Patient has homicidal ideation: No - Past Medical History Cardiac Medical History: Denies: Hx Atrial Fibrillation, Hx Congestive Heart Failure, Hx Heart Attack, Hx Hypercholesterolemia, Hx Hypertension Pulmonary Medical History: Reports: Hx Asthma Denies: Hx Bronchitis, Hx COPD, Hx Pneumonia, Hx Tuberculosis Neurological Medical History: Reports: Hx Migraine. Denies: Hx Seizures Endocrine Medical History: Denies: Hx Diabetes Mellitus Type 1, Hx Diabetes Mellitus Type 2 Renal/ Medical History: Denies: Hx End Stage Renal Disease, Hx Kidney Stones, Hx Peritoneal Dialysis GI Medical History: Reports: Hx Gastroesophageal Reflux Disease - only when . Denies: Hx Hiatal Hernia, Hx Ulcer Musculoskeletal Medical History: Denies Hx Arthritis Psychiatric Medical History: Reports: Hx Attention Deficit Hyperactivity Disorder Denies: Hx Bipolar Disorder, Hx Depression, Hx Schizophrenia Past Surgical History: Reports: Hx Breast Surgery - 2005 - Immunizations Hx Diphtheria, Pertussis, Tetanus Vaccination: Yes - during this Review of Systems - Review of Systems Constitutional: No symptoms reported EENT: No symptoms reported Cardiovascular: No symptoms reported Respiratory: No symptoms reported Gastrointestinal: Nausea Genitourinary: No symptoms reported Female Genitourinary: See HPI Musculoskeletal: No symptoms reported Skin: No symptoms reported Neurological/Psychological: No symptoms reported Physical Exam - Vital signs Vitals: Temp Pulse Resp BP Pulse Ox 98.0 F 100 20 130/70 H 100 08/26/19 20:51 08/26/19 20:51 08/26/19 20:51 08/26/19 20:51 08/26/19 20:51 - Notes Notes: This is a pleasant 29-year-old female who appears her stated age in no acute distress. Vital signs reviewed, please refer to chart. Head is normocephalic, atraumatic. Pupils equal round, reactive to light. Neck is supple without meningismus. Heart is regular rate and rhythm. Lungs are clear to auscultation bilaterally. Abdomen is soft, mildly tender in the suprapubic region without r ebound or guarding, normoactive bowel sounds throughout. Extremities without cyanosis, clubbing. Posterior calves are nontender. Peripheral pulses are equal. Skin is warm and dry. Course - Re-evaluation Re-evalutation: 08/27/19 00:27 Patient presents emergency department for evaluation. She was initially seen through triage. I did check blood bank history, she is in fact Rh+. Quantitative beta-hCG was not ordered, this was ordered here. Ultrasound fails to reveal any signs of an intrauterine , likely miscarriage with some retained products of conception. At this point, the patient's bleeding has slowed, she wishes to follow-up with [employer]. I certainly think that is reasonable at this time. She is given pelvic rest instructions, instructions on miscarriage. She is to follow-up with OB this week, call tomorrow for an appointment. She is to return to the emergency department for worsening or new concerning symptoms of any sort. - Vital Signs Vital signs: Temp Pulse Resp BP Pulse Ox 98.0 F 100 20 130/70 H 100 08/26/19 20:51 08/26/19 20:51 08/26/19 20:51 08/26/19 20:51 08/26/19 20:51 - Laboratory Result Diagrams: 08/26/19 20:20 08/26/19 20:20 Laboratory results interpreted by me: 08/26/19 08/26/19 08/26/19 20:20 20:20 23:20 WBC 11.4 H Hgb 11.8 L Hct 34.3 L Sodium 135.6 L Creatinine 0.44 L Urine Protein 30 H Urine Blood LARGE H - Diagnostic Test Radiology reviewed: Reports reviewed Radiology results interpreted by me: 08/27/19 00:28 Obstetrics Ultrasound 08/26/19 22:04 IMPRESSION: 1. No intrauterine is identified. Findings are consistent with spontaneous . 2. Abnormal appearance of the endometrium suggesting retained products of conception. 3. Discrete round hyperechoic area now seen in the right cornu of the uterus which may represent focal hematoma. 4. No free fluid. Discharge - Discharge Clinical Impression: Incomplete miscarriage Condition: Stable Disposition: HOME, SELF-CARE Instructions: Miscarriage ([facility]) Additional Instructions: Follow-up with OB this week. If you develop worsening or new concerning symptoms of any sort, please return immediately to the emergency department for evaluation.
== END 2019-08-27 00:36 | disposition home or self-care (01) ==
LOC: ER 20:45
DX: O03.4 Incomplete spontaneous abortion without complication (principal); R11.0 Nausea; J45.909 Unspecified asthma, uncomplicated; Z79.899 Other long term (current) drug therapy; Z88.0 Allergy status to penicillin
CPT/HCPCS: 36415; 76801; 80053; 81001; 84702; 85025; 93976; 99284

== ENCOUNTER 2020-08-27 01:03 | Outpatient (CLI) | payer MEDICAID ==
[2020-08-27 01:13] VITALS: BP 122/74
[2020-08-27] MEDS ORDERED: RINGERS SOLUTION,LACTATED 1,000 ML IV ONE (02:57)
[2020-08-27 03:01] LABS: APPEARANCE,URINE SLIGHTLY-CLOUDY; BILIRUBIN,URINE NEGATIVE (NEGATIVE); COLOR,URINE YELLOW; GLUCOSE, URINE NEGATIVE (NEGATIVE); KETONES,URINE NEGATIVE (NEGATIVE); LEUKOCYTE ESTERASE,URINE MODERATE (NEGATIVE); NITRITE,URINE NEGATIVE (NEGATIVE); PROTEIN,URINE NEGATIVE (NEGATIVE); URINE SPECIFIC GRAVITY 1.008; UROBILINOGEN,URINE NEGATIVE mg/dL (<2.0)
[2020-08-27] MEDS ORDERED: ONDANSETRON HCL INJ/PF 4 MG/2 ML SDV IV ONE (03:06)
[2020-08-27] MEDS ORDERED: ONDANSETRON HCL INJ/PF 4 MG/2 ML SDV ONE (03:09)
[2020-08-27 03:20] LABS: URINE AMPHETAMINES SCREEN NEGATIVE; URINE BARBITURATES SCREEN NEGATIVE; URINE BENZODIAZEPINES SCREEN NEGATIVE; URINE COCAINE SCREEN NEGATIVE; URINE MARIJUANA (THC) SCREEN NEGATIVE; URINE METHADONE SCREEN NEGATIVE; URINE PHENCYCLIDINE SCREEN NEGATIVE
== END 2020-08-27 04:01 | disposition home or self-care (01) ==
LOC: EDSTATUS 02:28 → LC 02:29
PROVIDERS: ATTEND Obstetrics & Gynecology Gynecology
DX: O21.2 Late vomiting of pregnancy (principal); Z3A.31 31 weeks gestation of pregnancy; Z88.1 Allergy status to other antibiotic agents
CPT/HCPCS: 59899; 81001; 80307; J2405